=== PATIENT | male | born 1955 | race Caucasian/White ===

== ENCOUNTER 2017-02-12 21:31 | Emergency (ER) | payer OTHER ==
[~2017-02-12] VITALS: Ht 175.3 cm; Wt 82.7 kg
[~2017-02-12 21:31] MED LIST: FENO160T14 PO; LANS15CA24 PO; LOVA20TA7 PO; ZES20 PO; ZLP5T PO
[2017-02-12 21:35] VITALS: BP 135/90; PULSE 103; RESP 16; O2SAT 97
--- NOTE | 2017-02-12 23:09 | ED.REPORT ---
HPI-Trauma Minor / Fall Date of Service Feb 12, 2017 ED Provider: Florentino Raygoza MD A 61 year old male with a history of hypertension and dyslipidemia presents to the ED with head trauma after a ground level fall just prior to arrival while intoxicated on alcohol. The patient doesn't remember the fall but denies loss of consciousness, neck pain, or other symptoms. Nursing Notes Stated Complaint: GLF Chief Complaint: Multiple Trauma/Fall Nursing Notes Reviewed: Yes Allergies: Coded Allergies: pseudoephedrine HCl (Verified Allergy, Severe, 02/12/17) Scheduled Fenofibrate-Expunged Drug, Do Not Renew! (Fenofibrate-Expunged Drug, Do Not Renew!) 160 Mg Tablet 160 MG PO DAILY Lansoprazole-Expunged Drug, Do Not Renew! (Lansoprazole-Expunged Drug, Do Not Renew!) 15 Mg Capsule.dr 15 MG PO DAILY Lisinopril-Expunged Drug, Do Not Renew! (Lisinopril-Expunged Drug, Do Not Renew! ) 20 Mg Tablet 20 MG PO DAILY start this on 05-23-11 Lovastatin-Expunged Drug, Do Not Renew! (Mevacor-Expunged Drug, Do Not Renew!) 20 Mg Tablet 20 MG PO HS Zolpidem-Expunged Drug, Do Not Renew! (Zolpidem-Expunged Drug, Do Not Renew!) 5 Mg Tab 5 MG PO HS General Time Seen by MD: 23:08 Chief Complaint Fall, Head injury Hx Obtained From: Patient Arrived By: Walk-in Onset Occurred: Just prior to arrival Context of Onset: EtOH use Symptom Duration: Since onset Caused by: Fall on ground Location: Head Quality: Painful Severity: Current: Moderate Severity: Maximum: Moderate Pertinent Negative: Pt denies other symptoms Pertinent Negative: Relieved by nothing Context: Immunizations Tetanus up to date Recent Healthcare: No recent doctor visit Past Medical History Past Medical History Hypertension Dyslipidemia Past Surgical History Colonoscopy Smoking History Current Every Day Smoker Social History Other Social History: Good social support Ambulatory Status Independent Review of Systems Review of Systems Note: + Head trauma, memory loss Constitutional: Denies: Fever Respiratory: Denies: Non-productive cough, Shortness of breath Musculoskeletal: Denies: Neck pain Neurologic: Denies: Change LOC Complete sys rev & neg: except as marked. GI: Denies: Diarrhea, Vomiting Physical Exam Initial Vital Signs Vital Signs (First) Date Time Temp Pulse Resp B/P Pulse Ox O2 Delivery O2 Flow Rate FiO2 02/12/17 21:35 36.5 103 16 135/90 97 Room Air Initial VS: Reviewed ENT: Conjunctiva normal, No scleral icterus Skin: Warm, Dry Psychiatric: Mood/affect normal, Behavior normal, Normal thought content General/Constitutional: Awake, Alert Appearance / Presentation: Positive: Intoxicated Sitting up Neck: Full range of motion, Non-tender Head / Eyes: Normocephalic, PERRL, EOMI Trauma - General: Positive: Laceration (6cm to right temporal area) Neurologic: Oriented X3, Speech NL Moving all four extremities Interpretation & Diagnostics CT Head Interpretation CONCLUSION: High right frontal scalp hematoma with laceration. Mild involutional changes. No acute intracranial abnormality. Trace spenoid sinusitis. Transmitted to the ED at 02/12/2017 - 11:38:09 PM PDT Study: Head CT no contrast Interpretation / Wet Read by: Interpret - Radiologist (Daniel Almazan M.D. ) Procedures Laceration Management Time: 23:52 Procedure Performed by: ED physician Consent / Setup / Site Prep: Consent from patient, Time-out performed, Hand hygiene observed, Stand sterile technique Location of Wound: Right temporal area Wound Length: 6 cm ([place]-shaped) Local Anesthesia: Lidocaine 1% Irrigation: Copious Foreign Body Explore / Removal: Explored for foreign body Repair Skin: Meri (Many) Repair Subcutaneous: ___ O (4), Chromic (Gut) # Sutures - SubQ: 4 Closure Layers: 2 Suture Technique: Simple (Interrupted) Post-Procedure / Complications: Antibiotic oint applied, Dressing applied, No complications, Condition improved, Tolerated procedure well, Patient stable Re-Eval/Medical Decision Source of Hx: Old records Re-Evaluation/Progress : Time of Eval: 23:52 Patient Status: Condition improved Re-Evaluation/Progress Note: Laceration management performed. Discussed with patient CT results, diagnosis, and plan for discharge. Follow-up and return to the ER instructions given. Patient agrees with plan for care and all questions were addressed. Counseled Regarding: Diagnosis, Need for follow-up, When/why to return to ED Discharge & Departure Impression: Primary Impression: Scalp laceration Encounter type: initial encounter Qualified Code: S01.01XA - Laceration without foreign body of scalp, initial encounter Additional Impression: Alcohol intoxication Complication of substance-induced condition: uncomplicated Qualified Code: F10.120 - Alcohol abuse with intoxication, uncomplicated Disposition: Home Discharge Condition All VS Reviewed: Yes Condition: Improved Patient Instructions: Acute Wound Care (ED) Additional Instructions: Keep wound clean and covered with antibiotic ointment. OK to shower and gently wash wound with soap and water after 12 hours. Return to ED for removal of meri in 10 days. If you experience headache, vomiting, unsteadiness on feet in the next couple of weeks, return to the ED immediately, these could be signs of delayed bleeding around brain. Do not drink alcohol to excess. Referrals: Juan Alberto Cifuentes MD (PCP) Scribe Attestation Portions of this note were transcribed by Cherrie Parham. I, Dr. Raygoza, personally performed the history, physical exam, and medical decision-making; I reviewed and confirmed the accuracy of the information in the transcribed note. Signed by: Hugo Lopez, 02/13/2017, 01:00 copies to: Juan Alberto Cifuentes MD, Donald L MD Feb 12, 2017 23:09 CHERRIE PARHAM Feb 12, 2017 23:14
[2017-02-12] MEDS ORDERED: Lidocaine 1%-Epi 1:100,000 20 mL Inj ONE (23:49)
[2017-02-13] MEDS ORDERED: Bacitracin Ointment Packet TOPICAL ONE (00:20)
[2017-02-13 00:55] VITALS: BP 137/96; PULSE 110; RESP 22; O2SAT 100
--- NOTE | 2017-02-13 09:16 | DRSVH ---
PROCEDURE: CT BRAIN WITHOUT CONTRAST ([id number]) INDICATIONS: head injury TECHNIQUE: Noncontrast 4.5 mm thick angled axial sections acquired from the foramen magnum to the vertex, with c oronal reformats. COMPARISON: None. FINDINGS: Image quality: Excellent. CSF spaces: Basal cisterns are patent. No extra-axial fluid collections. Ventricles are normal in size and shape. Brain: No midline shift. No intracranial masses or hemorrhage. Stewart-white matter interface is norm al. Skull and face: Calvarium and visualized facial bones are intact, without suspicious lesions. Right frontal scalp hematoma and laceration noted. Sinuses: Mucosal thickening noted in the right sphenoid sinus. The mastoids are clear. IMPRESSION: No acute intracranial disease process. Dictated by: Radha Bruce MD, PhD on 02/13/2017 at 9:14 Approved by: Radha Bruce MD, PhD on 02/13/2017 at 9:15
== END 2017-02-13 00:57 | disposition home or self-care (01) ==
LOC: SED 21:31
DX: S01.01XA Laceration without foreign body of scalp, initial encounter (principal); W18.30XA Fall on same level, unspecified, initial encounter; Y92.9 Unspecified place or not applicable; Y93.89 Activity, other specified; Y99.8 Other external cause status; F10.120 Alcohol abuse with intoxication, uncomplicated; I10 Essential (primary) hypertension; E78.5 Hyperlipidemia, unspecified; F17.200 Nicotine dependence, unspecified, uncomplicated; Z88.8 Allergy status to other drugs, medicaments and biological substances